=== PATIENT | female | born 1995 | race American Indian/Alaskan Native ===

== ENCOUNTER 2016-09-13 20:25 | Emergency (ER) | payer MEDICAID ==
[2016-09-13 21:08] VITALS: BP 121/72
--- NOTE | 2016-09-13 23:54 | Emergency Department Report ---
HPI - General Chief Complaint: Skin/Abscess/Foreign Body Time Seen by Provider: 09/13/16 23:17 - HPI HPI: 21-year-old female presents complaining of painless, not just behind her left ear x 1 week. Patient states she got her hair done about a week ago. Patient states she got individual. They noticed to not couple of days after that. Patient states the not so not painful he has not changed in size and she denies any ear pain. Patient denies serious S chest/nausea/vomiting/abdominal pain or any other problems. ED Past Medical Hx - Past Medical History Additional medical history: herpes - Surgical History Additional Surgical History: ecmo - Social History Smoking Status: Current Every Day Smoker Substance Use Type: Alcohol - Medications Home Medications: Home Medications Medication Instructions Recorded Confirmed Last Taken Type HYDROcodone/APAP 5-325 [[place] 1 each PO Q6HR PRN #10 tablet 11/24/13 Unknown Rx 5/325 mg] Ibuprofen [Motrin 800 MG tab] 800 mg PO Q8H #30 tablet 11/24/13 Unknown Rx Nitrofurantoin [place]/M-Cryst 100 mg PO Q12HR #14 capsule 12/30/14 Unknown Rx [Macrobid CAP] metroNIDAZOLE [Metrogel 1%] 1 applicatio TP QHS #5 gel..gram. 12/30/14 Unknown Rx Cyclobenzaprine [Flexeril 10 MG 10 mg PO TID PRN #10 tablet 03/02/15 Unknown Rx TAB] Ibuprofen [Motrin] 800 mg PO Q8HR PRN #15 tablet 03/02/15 Unknown Rx ALBUTEROL Inhaler [ProAir HFA 2 puff IH QID PRN #1 inhalation 12/30/15 Unknown Rx Inhaler] Benzonatate [Tessalon Perles] 100 mg PO Q8HR #20 capsule 12/30/15 Unknown Rx predniSONE [Deltasone] 20 mg PO QDAY #4 tab 12/30/15 Unknown Rx Cephalexin [Keflex] 250 mg PO BID #6 capsule 09/13/16 Unknown Rx ED Review of Systems ROS: Stated complaint: ABCESS/NECK Other details as noted in HPI Constitutional: denies: chills, fever Eyes: denies: eye pain, eye discharge, vision change ENT: denies: ear pain, throat pain Respiratory: denies: cough, shortness of breath, wheezing Cardiovascular: denies: chest pain, palpitations Endocrine: no symptoms reported Gastrointestinal: denies: abdominal pain, nausea, diarrhea Genitourinary: denies: urgency, dysuria, discharge Musculoskeletal: denies: back pain, joint swelling, arthralgia Skin: rash, pruritus. denies: lesions Neurological: denies: headache, weakness, numbness, paresthesias Psychiatric: denies: anxiety, depression Hematological/Lymphatic: denies: easy bleeding, easy bruising Physical Exam - Physical Exam Vital Signs: Vital Signs 09/13/16 21:05 Temperature 97.6 F Pulse Rate 72 Respiratory 18 Rate Blood Pressure 121/72 O2 Sat by Pulse 99 Oximetry Physical Exam: GENERAL: Alert and oriented x3, no apparent distress, Normal Gait, atraumatic. HEAD: Head is normocephalic and a-traumatic. EYES: Extra ocular muscles are intact. Pupils are equal, round, and reactive to light and accommodation. EARS: symetrical, atraumatic, non tender, ear canal clear and moderate cerumen, tympanic membrance non inflamed. gross auditory nml bilaterally. 2 0.5 cm, nontender nodules palpated base of hairline. No mastoid bone tenderness bilaterally NOSE: Nose symetrical, Nontender,Nares appeared normal. MOUTH:Mouth is well hydrated and without lesions. . Patent airways. LUNGS: Symetrical with respiration, No wheezing, no rales or crackles, CTAB. HEART: S1, S2 present, regular rate and rhythm without murmur, no rubs, no gallops. SKIN: Warm and dry, No lesions, No ulceration or induration present. ED Course Vital Signs 09/13/16 21:05 Temperature 97.6 F Pulse Rate 72 Respiratory 18 Rate Blood Pressure 121/72 O2 Sat by Pulse 99 Oximetry ED Medical Decision Making - Medical Decision Making 21-year-old female presents with postauricular lymphadenopathy discussed the patient this is most likely caused by pulling her hair being too tight Discussed follow-up with Care physician. Discussed to apply heat to affected area 3 times a day. Vital signs are stable patient is in no acute or respiratory distress. Patient verbally says she understands and will follow instructions are given. Critical care attestation.: If time is entered above; I have spent that time in minutes in the direct care of this critically ill patient, excluding procedure time. ED Disposition Clinical Impression: Posterior auricular lymphadenopathy Disposition: DISCHARGED TO HOME OR SELFCARE Is pt being admited?: No Does the pt Need Aspirin: No Condition: Stable Instructions: Lymphadenopathy (ED) Additional Instructions: Apply some heat 3 times a day to scalp Prescriptions: Cephalexin [Keflex] 250 mg PO BID #6 capsule Referrals: SERENA RIVERA MD [Referring] - 3-5 Days MARY HEALY MD [Referring] - 3-5 Days [facility]Outside[facility] - [facility]-5 Days Forms: Accompanied Note, Work/School Release Form(ED) Time of Disposition: 23:57
== END 2016-09-14 00:20 | disposition home or self-care (01) ==
LOC: ED 20:25
DX: R59.1 Generalized enlarged lymph nodes (principal)
CPT/HCPCS: 99282

== ENCOUNTER 2016-11-19 19:53 | Emergency (ER) | payer MEDICAID ==
[2016-11-19] MEDS ORDERED: CLEOCIN IM ONE (23:42)
[2016-11-19] MEDS ORDERED: TYLENOL #3 PO ONE (23:42)
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
--- NOTE | 2016-11-20 00:10 | XRay Report ---
FINAL REPORT EXAM: XR KNEE 3V LT HISTORY: pain/wound/fall/ TECHNIQUE: Left knee three views 3 images PRIORS: None. FINDINGS: Bone mineralization appears within normal limits. No acute fracture or subluxation is identified. No gross abnormality is seen in the soft tissues. No joint effusion is seen. IMPRESSION: 1. No acute osseous abnormality is identified.
[2016-11-20 00:33] VITALS: BP 122/74
== END 2016-11-20 00:43 | disposition home or self-care (01) ==
LOC: ED 19:53
DX: M25.562 Pain in left knee (principal); S80.212D Abrasion, left knee, subsequent encounter; Z88.0 Allergy status to penicillin; F12.10 Cannabis abuse, uncomplicated; W18.39XD Other fall on same level, subsequent encounter
CPT/HCPCS: 96372

== ENCOUNTER 2017-07-04 09:25 | Emergency (ER) | payer MEDICAID ==
[2017-07-04] MEDS ORDERED: NORCO 5/325 PO ONE (13:36)
[2017-07-04] MEDS ORDERED: XYLOCAINE 1% MPF 5 mL INFILTRATI ONE (13:36)
[2017-07-04] MEDS ORDERED: TRIPLE ANTIBIOTIC TP ONE (14:21)
--- NOTE | 2017-07-04 14:36 | Emergency Department Report ---
Abscess Boil HPI - HPI Chief Complaint: Extremity Injury, Upper Stated Complaint: INFECTED FINGERNAIL Duration: >1 Week Location: Upper Extremity Severity: Mild History: No Fever, No Pain, No Purulent Drainage, No Numbness, No Foreign Body, No Previous History, No Insect Bite HPI: 21 year old female presents to ED with right middle finger abscess x1 week. patient states she is unsure of how abscess formed. patient denies diabetes and states LMP was 2-3 weeks ago. patient is stable, neurologically intact and in no acute distress. patient also states she has no allergy to penicillin and she has taken penicillin before with no side effects. Home Medications: Previous Rx's Medication Instructions Recorded Last Taken Type HYDROcodone/APAP 5-325 [[place] 1 each PO Q6HR PRN #10 tablet 11/24/13 Unknown Rx 5/325 mg] Ibuprofen [Motrin 800 MG tab] 800 mg PO Q8H #30 tablet 11/24/13 Unknown Rx Nitrofurantoin [place]/M-Cryst 100 mg PO Q12HR #14 capsule 12/30/14 Unknown Rx [Macrobid CAP] metroNIDAZOLE [Metrogel 1%] 1 applicatio TP QHS #5 gel..gram. 12/30/14 Unknown Rx ALBUTEROL Inhaler [ProAir HFA 2 puff IH QID PRN #1 inhalation 12/30/15 Unknown Rx Inhaler] Benzonatate [Tessalon Perles] 100 mg PO Q8HR #20 capsule 12/30/15 Unknown Rx predniSONE [Deltasone] 20 mg PO QDAY #4 tab 12/30/15 Unknown Rx Cephalexin [Keflex] 500 mg PO BID #20 capsule 11/20/16 Unknown Rx Cyclobenzaprine [Flexeril 10 MG 10 mg PO TID PRN #10 tablet 11/20/16 Unknown Rx TAB] Ibuprofen [Motrin 800 MG tab] 800 mg PO Q8HR PRN #15 tablet 11/20/16 Unknown Rx Neomycn/Bacitrc/Polymyx/Pramox 1 applic TP TID #1 tube 11/20/16 Unknown Rx [Triple Antibiotic Plus Ointmnt] Cephalexin [Keflex] 500 mg PO Q8HR #21 cap 07/04/17 Unknown Rx Allergies/Adverse Reactions: Allergies Allergy/AdvReac Type Severity Reaction Status Date / Time Penicillins Allergy Unknown Verified 04/12/16 08:31 ED Review of Systems ROS: Stated complaint: INFECTED FINGERNAIL Other details as noted in HPI Constitutional: denies: chills, fever Eyes: denies: eye pain, eye discharge, vision change ENT: denies: ear pain, throat pain Respiratory: denies: cough, shortness of breath, wheezing Cardiovascular: denies: chest pain, palpitations Endocrine: no symptoms reported Gastrointestinal: denies: abdominal pain, nausea, diarrhea Genitourinary: denies: urgency, dysuria, discharge Musculoskeletal: denies: back pain, joint swelling, arthralgia Skin: denies: rash Neurological: denies: headache, weakness, paresthesias Psychiatric: denies: anxiety, depression Hematological/Lymphatic: denies: easy bleeding, easy bruising ED Past Medical Hx - Past Medical History Additional medical history: herpes - Surgical History Additional Surgical History: ecmo - Social History Smoking Status: Current Every Day Smoker Substance Use Type: None, Marijuana - Medications Home Medications: Home Medications Medication Instructions Recorded Confirmed Last Taken Type HYDROcodone/APAP 5-325 [[place] 1 each PO Q6HR PRN #10 tablet 11/24/13 Unknown Rx 5/325 mg] Ibuprofen [Motrin 800 MG tab] 800 mg PO Q8H #30 tablet 11/24/13 Unknown Rx Nitrofurantoin [place]/M-Cryst 100 mg PO Q12HR #14 capsule 12/30/14 Unknown Rx [Macrobid CAP] metroNIDAZOLE [Metrogel 1%] 1 applicatio TP QHS #5 gel..gram. 12/30/14 Unknown Rx ALBUTEROL Inhaler [ProAir HFA 2 puff IH QID PRN #1 inhalation 12/30/15 Unknown Rx Inhaler] Benzonatate [Tessalon Perles] 100 mg PO Q8HR #20 capsule 12/30/15 Unknown Rx predniSONE [Deltasone] 20 mg PO QDAY #4 tab 12/30/15 Unknown Rx Cephalexin [Keflex] 500 mg PO BID #20 capsule 11/20/16 Unknown Rx Cyclobenzaprine [Flexeril 10 MG 10 mg PO TID PRN #10 tablet 11/20/16 Unknown Rx TAB] Ibuprofen [Motrin 800 MG tab] 800 mg PO Q8HR PRN #15 tablet 11/20/16 Unknown Rx Neomycn/Bacitrc/Polymyx/Pramox 1 applic TP TID #1 tube 11/20/16 Unknown Rx [Triple Antibiotic Plus Ointmnt] Cephalexin [Keflex] 500 mg PO Q8HR #21 cap 07/04/17 Unknown Rx ED Abscess Boil Physical Exam - Exam General: Vital signs noted. No distress. Alert and acting appropriately. Size: 2 cm Exam: Yes Tenderness, Yes Fluctuance, Yes Normal Neurologic Exam, Yes Normal Circulation, No Surrounding Cellulites/Erythema, No Lymphangitis, No Crepitation , No Heart Murmur I & D Note - I & D Note I & D Note: 1cm abscess present on right distal middle finger on dorsum of hand. area prepped with betadine and 1% lidocaine without epi used for numbing purposes. 11 blade scalpel used for incision and moderate amount of purulent drainage obtained. irrigation performed with normal saline. normal neurovascular status after procedure. patient tolerated well. bleeding well controlled. ED Course Vital Signs 07/04/17 07/04/17 10:25 13:48 Temperature 97.9 F Pulse Rate 54 L Respiratory 16 18 Rate Blood Pressure 113/59 O2 Sat by Pulse 98 Oximetry Critical care attestation.: If time is entered above; I have spent that time in minutes in the direct care of this critically ill patient, excluding procedure time. ED Medical Decision Making - Medical Decision Making 21 year old female presents to ED with right middle finger abscess x2 weeks. patient tolerated I&D well. patient agrees and understands to return to ED within 2-3 days for wound recheck. sterile dressing applied to wound and patient received RX for oral ABX. ED Disposition Clinical Impression: Abscess of right middle finger Disposition: DC- TO HOME OR SELFCARE Is pt being admited?: No Does the pt Need Aspirin: No Condition: Stable Instructions: Abscess (ED) Additional Instructions: Please return to ED or urgent care or PCP within 2-3 days for recheck Prescriptions: Cephalexin [Keflex] 500 mg PO Q8HR #21 cap Referrals: PRIMARY CARE, [Primary Care Provider] - 2-3 Days Forms: Work/School Release Form(ED)
[2017-07-04 14:39] VITALS: BP 114/62
== END 2017-07-04 14:37 | disposition home or self-care (01) ==
LOC: ED 09:25
DX: L02.511 Cutaneous abscess of right hand (principal); F17.200 Nicotine dependence, unspecified, uncomplicated; F12.10 Cannabis abuse, uncomplicated
CPT/HCPCS: A6250

== ENCOUNTER 2021-02-09 16:17 | Emergency (ER) | payer SELFPAY ==
[2021-02-09 16:31] VITALS: BP 130/86
--- NOTE | 2021-02-09 16:34 | Emergency Department Report ---
ED General Adult HPI - General Chief complaint: Seizure Stated complaint: SEIZURE Time Seen by Provider: 02/09/21 16:23 Source: patient Mode of arrival: Stretcher Limitations: No Limitations - History of Present Illness Initial comments: The patient presents to the emergency department via private vehicle for seizure-like activity. Patient is not postictal upon my evaluation. Patient dates her last seizure was a month and a half ago. Patient states she has had a least 5 seizures in the last 2 years. Patient does endorse using marijuana. Patient denies any head trauma. Patient denies headache currently. Patient also states she has never followed up with a neurologist and has not taken seizure medications. -: Sudden Severity scale (0 -10): 0 Consistency: constant Improves with: none Worsens with: none Associated Symptoms: denies other symptoms Treatments Prior to Arrival: none - Related Data Previous Rx's Medication Instructions Recorded Last Taken Type HYDROcodone/APAP 5-325 [[place] 1 each PO Q6HR PRN #10 tablet 11/24/13 Unknown Rx 5/325 mg] Ibuprofen [Motrin 800 MG tab] 800 mg PO Q8H #30 tablet 11/24/13 Unknown Rx Nitrofurantoin [place]/M-Cryst 100 mg PO Q12HR #14 capsule 12/30/14 Unknown Rx [Macrobid CAP] metroNIDAZOLE [Metrogel 1%] 1 applicatio TP QHS #5 gel..gram. 12/30/14 Unknown Rx Albuterol Mdi (or & Nicu Only) 2 puff IH QID PRN #1 inhalation 12/30/15 Unknown Rx [ProAir HFA Inhaler] Benzonatate [Tessalon Perles] 100 mg PO Q8HR #20 capsule 12/30/15 Unknown Rx predniSONE [Deltasone] 20 mg PO QDAY #4 tab 12/30/15 Unknown Rx Cyclobenzaprine [Flexeril 10 MG 10 mg PO TID PRN #10 tablet 11/20/16 Unknown Rx TAB] Ibuprofen [Motrin 800 MG tab] 800 mg PO Q8HR PRN #15 tablet 11/20/16 Unknown Rx Neomycn/Bacitrc/Polymyx/Pramox 1 applic TP TID #1 tube 11/20/16 Unknown Rx [Triple Antibiotic Plus Ointmnt] cephALEXin [Keflex] 500 mg PO BID #20 capsule 11/20/16 Unknown Rx cephALEXin [Keflex] 500 mg PO Q8HR #21 cap 07/04/17 Unknown Rx Azithromycin [Zithromax Z-NEIDA] 250 mg PO DAILY #6 tab 08/30/18 Unknown Rx Ibuprofen [Ibuprofen 800] 800 mg PO TID PRN #30 tablet 08/30/18 Unknown Rx levETIRAcetam [Keppra TAB] 500 mg PO BID #60 tablet 02/09/21 Unknown Rx Allergies Allergy/AdvReac Type Severity Reaction Status Date / Time Penicillins Allergy Unknown Verified 04/12/16 08:31 ED Review of Systems ROS: Stated complaint: SEIZURE Other details as noted in HPI Comment: All other systems reviewed and negative Constitutional: denies: chills, fever Eyes: denies: eye pain, eye discharge, vision change ENT: denies: ear pain, throat pain Respiratory: denies: cough, shortness of breath, wheezing Cardiovascular: denies: chest pain, palpitations Endocrine: no symptoms reported Gastrointestinal: denies: abdominal pain, nausea, diarrhea Genitourinary: denies: urgency, dysuria, discharge Musculoskeletal: denies: back pain, joint swelling, arthralgia Skin: denies: rash, lesions Neurological: denies: headache, weakness, paresthesias Psychiatric: denies: anxiety, depression Hematological/Lymphatic: denies: easy bleeding, easy bruising ED Past Medical Hx - Past Medical History Previous Medical History?: No Hx Seizures: Yes Additional medical history: herpes - Surgical History Past Surgical History?: No Additional Surgical History: ecmo - Social History Smoking Status: Current Every Day Smoker Substance Use Type: None - Medications Home Medications: Home Medications Medication Instructions Recorded Confirmed Last Taken Type HYDROcodone/APAP 5-325 [[place] 1 each PO Q6HR PRN #10 tablet 11/24/13 Unknown Rx 5/325 mg] Ibuprofen [Motrin 800 MG tab] 800 mg PO Q8H #30 tablet 11/24/13 Unknown Rx Nitrofurantoin [place]/M-Cryst 100 mg PO Q12HR #14 capsule 12/30/14 Unknown Rx [Macrobid CAP] metroNIDAZOLE [Metrogel 1%] 1 applicatio TP QHS #5 gel..gram. 12/30/14 Unknown Rx Albuterol Mdi (or & [place] Only) 2 puff IH QID PRN #1 inhalation 07/22/16 Unknown Rx [ProAir HFA Inhaler] Benzonatate [Tessalon Perles] 100 mg PO Q8HR #20 capsule 12/30/15 Unknown Rx predniSONE [Deltasone] 20 mg PO QDAY #4 tab 12/30/15 Unknown Rx Cyclobenzaprine [Flexeril 10 MG 10 mg PO TID PRN #10 tablet 11/20/16 Unknown Rx TAB] Ibuprofen [Motrin 800 MG tab] 800 mg PO Q8HR PRN #15 tablet 11/20/16 Unknown Rx Neomycn/Bacitrc/Polymyx/Pramox 1 applic TP TID #1 tube 11/20/16 Unknown Rx [Triple Antibiotic Plus Ointmnt] cephALEXin [Keflex] 500 mg PO BID #20 capsule 11/20/16 Unknown Rx cephALEXin [Keflex] 500 mg PO Q8HR #21 cap 07/04/17 Unknown Rx Azithromycin [Zithromax Z-NEIDA] 250 mg PO DAILY #6 tab 08/30/18 Unknown Rx Ibuprofen [Ibuprofen 800] 800 mg PO TID PRN #30 tablet 08/30/18 Unknown Rx levETIRAcetam [Keppra TAB] 500 mg PO BID #60 tablet 02/09/21 Unknown Rx ED Physical Exam - General Limitations: No Limitations General appearance: alert, in no apparent distress - Head Head exam: Present: atraumatic, normocephalic - Eye Eye exam: Present: normal appearance, PERRL, EOMI - ENT ENT exam: Present: mucous membranes dry - Neck Neck exam: Present: normal inspection - Respiratory Respiratory exam: Present: normal lung sounds bilaterally. Absent: respiratory distress - Cardiovascular Cardiovascular Exam: Present: regular rate, normal rhythm. Absent: systolic murmur, diastolic murmur, rubs, gallop - GI/Abdominal GI/Abdominal exam: Present: soft, normal bowel sounds. Absent: distended, tenderness - Extremities Exam Extremities exam: Present: normal inspection - Back Exam Back exam: Present: normal inspection - Neurological Exam Neurological exam: Present: alert, oriented X3, CN II-XII intact. Absent: motor sensory deficit - Psychiatric Psychiatric exam: Present: normal affect, normal mood - Skin Skin exam: Present: warm, dry, intact, normal color. Absent: rash ED Course Vital Signs 02/09/21 02/09/21 16:29 16:30 Temperature 98 F Pulse Rate 66 Respiratory 17 17 Rate Blood Pressure 130/86 [Left] O2 Sat by Pulse 95 95 Oximetry ED Medical Decision Making - Medical Decision Making Patient given pstormy Cornejo and maria alejandra Munroe Critical care attestation.: If time is entered above; I have spent that time in minutes in the direct care of this critically ill patient, excluding procedure time. ED Disposition Clinical Impression: Seizure-like activity Disposition: HOME / SELF CARE / HOMELESS Is pt being admited?: No Does the pt Need Aspirin: No Condition: Stable Instructions: Seizure, Adult Additional Instructions: Return if worse Prescriptions: levETIRAcetam [Keppra TAB] 500 mg PO BID #60 tablet Referrals: PRIMARY CAREMD [Primary Care Provider] - 3-5 Days SB MENON MD [Staff Physician] - 3-5 Days Time of Disposition: 17:50
[2021-02-09] MEDS: ONDANSETRON 4 MG ODT TAB PO ONE (16:47)
[2021-02-09] MEDS: levETIRAcetam 500 MG TAB PO ONE (16:47)
== END 2021-02-09 18:17 | disposition home or self-care (01) ==
LOC: ED 16:17
DX: G40.909 Epilepsy, unspecified, not intractable, without status epilepticus (principal); F17.200 Nicotine dependence, unspecified, uncomplicated; Z79.899 Other long term (current) drug therapy; Z88.0 Allergy status to penicillin; Z86.69 Personal history of other diseases of the nervous system and sense organs; Z98.890 Other specified postprocedural states
CPT/HCPCS: 82962